=== PATIENT | male | born 1945 | race Caucasian/White ===

== ENCOUNTER 2024-12-23 07:49 | Day surgery (SDC) | payer MEDICARE, OTHER ==
--- NOTE | 2024-12-15 16:07 | ELECTROCARDIOGRAPH REPORT ---
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 Yamileth Arriaza Measurements Intervals Lamoni Rate: 90 P: 85 KS: 206 QRS: 87 QRSD: 104 T: 70 QT: 355 QTc: 435 Interpretive Statements Sinus rhythm Borderline right axis deviation Abnormal R-wave progression, early transition Electronically Signed On 12-16-2024 6:39:[address] Yamileth Arriaza Please click the below link to view image of tracing.
[2024-12-15 16:12] LABS: MEAN PLATELET VOLUME 8.1 FL (7.4-10.4); PRE OP HEMATOCRIT 43.3 % (42.0-52.0); PRE OP HEMOGLOBIN 14.5 g/dL (14.0-17.9); PRE OP PLATELET COUNT 243 X10'3 (140-440); PRE OP WHITE BLOOD COUNT 7.1 10'3 (4.8-10.8); RED CELL DISTRIBUTION WIDTH 14.6 % (11.5-14.5)
[2024-12-15 16:18] LABS: CREATININE 1.01 MG/DL (0.60-1.10); PRE OP ALT 28 U/L (30-65); PRE OP ANION GAP 5 (8-16); PRE OP AST 20 U/L (10-37); PRE OP BILIRUB, TOTAL 0.5 MG/DL (0.0-1.0); PRE OP GLUCOSE 100 MG/DL (70-104); PRE OP POTASSIUM 4.8 MMOL/L (3.4-5.1); PRE OP SODIUM 141 MMOL/L (135-145); TOTAL CARBON DIOXIDE 30.4 MMOL/L (24-32); eGFR 72 ML/MIN
[~2024-12-23] VITALS: Ht 175.3 cm; Wt 88.6 kg
[2024-12-23] VITALS (12 sets, daily range): BP systolic 117–135; BP diastolic 63–87; PULSE 65–77; RESP 10–17; TEMP 97.7; O2SAT 96–100
[2024-12-23] MEDS: ceFAZolin 2gm/dext,iso 50mL 50 ML IV ONE (05:30)
[~2024-12-23 07:49] MED LIST: ALBU8HFA IH; KEN0.1O TOP; TAMS-55 PO; TRAM50TA2 PO
[2024-12-23] MEDS: ringers solution, lacted 1,000 ML IV SCH (08:23)
[2024-12-23] MEDS ORDERED: fluoroscein sod 10% (100mg/ml) 5ml vial ONE (09:39)
[2024-12-23] MEDS ORDERED: BUPIVAcaine 0.25% w/Epi /PF 30ml vial ONE (09:39)
[2024-12-23] MEDS ORDERED: INDOCYANINE GREEN 25 MG/10 ML VIAL IV ONE (09:40)
[2024-12-23] MEDS ORDERED: BUPIVACAINE liposomal/PF 13.3 MG/ML 10mL vial IM ONE ×2 (09:40→09:58)
[2024-12-23] MEDS ORDERED: BUPIVAcaine 2.5mg/ml inj 50ml vial (contains preservative) ONE (09:49)
[2024-12-23] MEDS ORDERED: midazolam 1 mg/ML 2ml injection ONE (10:13)
[2024-12-23] MEDS ORDERED: fentaNYL /PF 50mcg/ml 5ml ampule ONE (10:14)
[2024-12-23] MEDS ORDERED: ringers solution, lacted 1,000 ML IV SCH ×2 (10:15→12:50)
[2024-12-23] MEDS ORDERED: ondansetron/PF 4mg/2ml inj IV PRN (10:15)
[2024-12-23] MEDS ORDERED: labetalol 20mg/4ml (5mg/ml) syringe IV PRN (10:15)
[2024-12-23] MEDS ORDERED: morphine 4 MG/ML inj SYRINge IV PRN (10:15)
[2024-12-23] MEDS ORDERED: enalaprilat 1.25mg/ml 2ml vial IV PRN (10:15)
[2024-12-23] MEDS ORDERED: fentaNYL/PF 50MCG/1 ML 2ML syringe IV PRN ×2 (10:15)
[2024-12-23] MEDS ORDERED: HYDROmorphone/PF 0.2 MG/ML SYRINGE IV PRN ×2 (10:15)
[2024-12-23] MEDS ORDERED: rocuronium 10mg/ml inj IV ONE (10:21)
[2024-12-23] MEDS ORDERED: propofol inj 20 ML IV ONE (10:21)
[2024-12-23] MEDS ORDERED: LIDOcaine 2% (20mg/ml) 5ml vial ONE (10:21)
[2024-12-23] MEDS ORDERED: dexamethasone sod phosphate 4mg/ml inj. ONE (10:34)
[2024-12-23] MEDS: BUPIVAcaine/PF 2.5 mg/ml (0.25%) 30ml vial IJ ONE (11:01)
[2024-12-23] MEDS: BUPIVACAINE liposomal/PF 13.3 MG/ML 10mL vial IM ONE (11:03)
[2024-12-23] MEDS ORDERED: acetaminophen 1,000mg/100ml IV 100 ML IV ONE (12:04)
[2024-12-23] MEDS ORDERED: ondansetron/PF 4mg/2ml inj ONE (12:06)
[2024-12-23] MEDS ORDERED: glycopyrrolate 0.2mg/ml inj ONE (12:06)
--- NOTE | 2024-12-23 12:40 | OPERATIVE REPORT ---
Operative Report Providers to ~ Date of Procedure: Dec 23, 2024 Pre-Operative Diagnosis: Prostate cancer Post-Operative Diagnosis SAME as PRE-Op Procedure Performed Robotic assisted radical prostatectomy Surgeon: MD Lizabeth Shirt Creaser MD Ailyn Anesthesiologist: Anshul Arvizu Type of Anesthesia: General Findings: Prostate cancer Complications None Prosthetics\Implants used: None Estimated Blood Loss: Less than 25 mL Specimen Removed: Prostate Description of Procedure: Patient was brought to the operating room, given a general anesthetic, and p laced in the supine position. He was prepped and draped in the normal sterile fashion. A timeout was performed. A colvin catheter was placed. An incision was made above the umbilicus. Verass needle was used the insuflate the abdomen. Then an 8 uzbek robotic port was placed. We then placed 3 more robotic ports lateral to the median port. On the right a 12 uzbek regulatory affairs assistant port was placed under direct visualization. The patient was put into steep trendelenburg and the robot was docked. With the robot docked I used sharp dissection to drop the sigmoid colon. Once the sigmoid colon was dropped I made an incision in the peritoneum posteriorly and dissected to the seminal vesicles and vas deferns bilaterally. Once I was there I was able to dissect the posterior plan. Vas deferns were dissected bilaterally. I next turned my attention to the bladder. I dropped the bladder and approached the prostate from above opening the endopelvic fascia bilaterally with sharp dissection. Once this was completed and all pelvic floor muscles were brushed off the prostate I next turned to taking the bladder neck. Electrocautery was used to dissect the bladder neck until the catheter was reached, at which point the catheter was pulled up and the posterior bladder neck was dissected. Seminal vesicles and vas deferns bilaterally were both pulled up at this point. I next continued fully dissecting the posterior. The pedicles were taken at this point and the nerves were spared. I then used sharp dissection to take the dorsal venous complex, using a 3-0 v-lock suture to close the sinuses. The rest of the urethra was then taken with sharp dissection. The prostate was now free and moved out of the way, and double armed 3-0 v-loc suture was used to approximate the bladder neck to the urethra. I did this circumstantially until it was complete. This was tested with a new colvin catheter and was water tight. The prostate was placed in a specimen bag and the robot was undocked. The incision over the umbilicus was increased to allow the prostate to be removed, at which point it was removed. 2-0 vicryl suture was used to close the fascia, local anesthetic was injected into each wound, and 4-0 monocryl suture was used to close the skin with dermabond glue on the skin level. ALVARADO FIELDS MD Dec 23, 2024 12:39
== END 2024-12-23 13:54 | disposition home or self-care (01) ==
LOC: PAS 07:49
PROVIDERS: ATTEND Urology
DX: C61 Malignant neoplasm of prostate (principal); R94.31 Abnormal electrocardiogram [ECG] [EKG]; J45.909 Unspecified asthma, uncomplicated; Z87.442 Personal history of urinary calculi; Z79.899 Other long term (current) drug therapy; Z98.890 Other specified postprocedural states; Z88.8 Allergy status to other drugs, medicaments and biological substances
CPT/HCPCS: 36415; 55866; 80053; 82948; 85025; 86885; 86900; 86901; 87081; 88309; 93005; A4215; A4338; A4357; A4618; J0131; J0665; J0666; J1100; J2003; J2250; J2405; J2704; J2710; J3010; J3490; J7030; J7120; Z7506; Z7508; Z7512; Z7610